=== PATIENT | male | born 1995 | race Caucasian/White ===

== ENCOUNTER → 2021-02-17 11:26 | Outpatient (BNVA) | payer OTHER, SELFPAY | PROVIDERS: PCP Nurse Practitioner Family; Visit Provider Nurse Practitioner Family | DX: Z20.822 Contact with and (suspected) exposure to COVID-19 (principal) | CPT/HCPCS: 87635 ==

== ENCOUNTER 2025-05-25 10:57 | Outpatient (CLI) | payer SELFPAY ==
--- NOTE | 2025-05-25 12:00 | CT_ITS ---
WS: [id number] CT ABDOMEN PELVIS TECHNIQUE: Contrast-enhanced CT of the abdomen and pelvis with coronal and sagittal reformatted images. CLINICAL INFORMATION: R10.9 - Unspecified abdominal pain COMPARISON: None. DLP: 1528.[address] scans at [facility] use at least one of these dose optimization techniques: automated exposure control; mA and/or kV adjustment per patient size (includes targeted exams where dose is matched to clinical indication); or iterative reconstruction. FINDINGS: Small to moderate LEFT pleural effusion. Compressive atelectasis LEFT lower lobe. Diffuse fatty filtration of the liver. Portal vein and splenic vein are patent. Small esophageal hiatal hernia. Evidence of gastritis and duodenitis. Normal pancreatic parenchymal enhancement. Normal splenic enhancement. Adrenal glands are normal. No hydronephrosis in either kidney. Moderate perihepatic abdominal and pelvic ascites. Recommend correlation with liver function tests. No evidence of small or large bowel obstruction. No other acute findings. CT/CT abdomen pelvis w con* [id number] IMPRESSION: 1. Small to moderate LEFT pleural effusion. 2. Moderate abdominal and pelvic ascites of indeterminate etiology. Recommend correlation with liver function tests. 3. Diffuse fatty infiltration of the liver. 4. Small esophageal hiatal hernia. 5. Evidence of gastritis and duodenitis. 6. No hydronephrosis in either kidney. 7. No other acute findings.
[2025-05-25] MEDS: iohexol 350 mg/mL 500 mL Btl (per mL) PO (12:22)
[2025-05-25] MEDS: iohexol 350 mg/mL 500 mL Btl (per mL) IV (12:22)
== END 2025-05-25 10:58 | disposition home or self-care (01) ==
PROVIDERS: PCP Nurse Practitioner Family; Visit Provider Nurse Practitioner Family
DX: K29.70 Gastritis, unspecified, without bleeding (principal); J90 Pleural effusion, not elsewhere classified; J98.11 Atelectasis; K76.0 Fatty (change of) liver, not elsewhere classified; K44.9 Diaphragmatic hernia without obstruction or gangrene; R18.8 Other ascites; K29.80 Duodenitis without bleeding
CPT/HCPCS: 74177

== ENCOUNTER 2025-06-01 07:52 | Outpatient (CLI) | payer SELFPAY ==
--- NOTE | 2025-06-01 08:00 | CT_ITS ---
WS: [id number] CT chest w con* [id number] HISTORY: J90 - Pleural effusion, not elsewhere classified TECHNIQUE: Axial imaging performed through the thorax. Coronal and sagittal reformats are submitted. All CT scans at [facility] use at least one of these dose optimization techniques: automated exposure control; mA and/or kV adjustment per patient size (includes targeted exams where dose is matched to clinical indication); or iterative reconstruction. CONTRAST: Omnipaque 350; 100 mL IV. DLP: 660.65 mGy.cm COMPARISON: 05/25/2025 Lungs and central airway: Motion artifact from breathing. Partial atelectasis LEFT lower lobe due to a small to moderate LEFT pleural effusion. Short segment linear atelectasis at the lingula. Pleura: Small to moderate layering LEFT pleural effusion. No right-sided effusion. Heart and pericardium: Normal size heart with no pericardial effusion. Mediastinum and alejandro: No pathologically enlarged lymph nodes. Vessels: Normal size aortic and pulmonary artery. No coronary artery calcifications. Chest wall and lower neck: No soft tissue masses. Upper abdomen: Moderate amount of ascites in the peritoneal cavity as was previously described. The volume of ascites does appear slightly less than on the prior study. Omental stranding and edema. Gallbladder is contracted. Adrenal glands are incompletely included. Osseous structures: No destructive process. CT/CT chest w con* [id number] IMPRESSION: 1. Small to moderate LEFT pleural effusion. 2. No right-sided pleural effusion. 3. Moderate ascites noted in the upper abdomen. Volume of ascites does appear slightly improved. There is soft tissue stranding within the omentum and mesent minor which is probably related to the ascites and edema. This can also be seen w ith neoplastic processes. 4. No mediastinal or hilar adenopathy.
[2025-06-01] MEDS: iohexol 350 mg/mL 500 mL Btl (per mL) IV (08:28)
== END 2025-06-01 07:53 | disposition home or self-care (01) ==
LOC: RAD 07:53
PROVIDERS: PCP Nurse Practitioner Family; Visit Provider Nurse Practitioner Family
DX: J90 Pleural effusion, not elsewhere classified (principal); R18.8 Other ascites; K66.8 Other specified disorders of peritoneum
CPT/HCPCS: 71260; 80053; 85025